=== PATIENT | male | born 1960 | race Caucasian/White ===

== ENCOUNTER → 2020-03-05 | Emergency (ER) | payer SELFPAY ==
[~2020-03-05] VITALS: Ht 188 cm; Wt 136.1 kg
[~2020-03-05] MED LIST: Ciprofloxacin Hydrochloride PO; DOC100C PO; HYDROcodone-ACET 10/325MG TAB PO ONE; HYDROcodone-ACET 5/325MG TAB PO ONE; RIVA10TA PO; SACC250C PO
[2020-03-05 03:11] LABS: Basophils # (auto) 0.1 10 ^3/uL (0-0.2); Basophils % (auto) 0.8 % (0.0-2.0); Eosinophils # (auto) 0.1 10 ^3/uL (0-0.8); Eosinophils % (auto) 1.9 % (0.0-7.0); Hemoglobin 15.3 g/dL (13.5-17.5); Lymphocytes # (auto) 1.4 10 ^3/uL (0.4-5.4); Lymphocytes % (auto) 21.5 % (10.0-50.0); Mean Corpuscular Hemoglobin 30.6 pg (28.0-32.0); Mean Corpuscular Hgb Conc. 35.5 g/dL (32.0-36.0); Monocytes # (auto) 0.6 10 ^3/uL (0-1.3); Monocytes % (auto) 9.3 % (0.0-12.0); Neutrophils # (auto) 4.5 10 ^3/uL (1.6-8.6); Neutrophils % (auto) 66.5 % (37.0-80.0); Nucleated Red Blood Cells % 0.2 %; Platelet Count (auto) 223 10^3/uL (140-450); Red Cell Distribution Width 13.5 % (11.8-14.3); White Blood Cell 6.7 10^3/uL (4.4-10.8)
[2020-03-05 04:00] LABS: Blood Alcohol < 3.0 mg/dL (0-5)
[2020-03-05 04:19] VITALS: BP 144/84
== END | disposition home or self-care (01) ==
LOC: EDUNIT# 03-04 23:55 → EDBD 00:10 → ER 00:15
DX: R07.89 Other chest pain (principal); Z79.899 Other long term (current) drug therapy; V49.9XXA Car occupant (driver) (passenger) injured in unspecified traffic accident, initial encounter; Y93.89 Activity, other specified; Y92.89 Other specified places as the place of occurrence of the external cause; Y99.8 Other external cause status
CPT/HCPCS: 36415; 70450; 71045; 72125; 73502; 80320; 83880; 84484; 85025

== ENCOUNTER 2020-12-07 10:20 | Emergency (ER) | payer OTHER ==
[~2020-12-07] VITALS: Ht 188 cm; Wt 136.1 kg
[~2020-12-07 10:20] MED LIST changes: -HYDROcodone-ACET 10/325MG TAB PO ONE; -HYDROcodone-ACET 5/325MG TAB PO ONE
[2020-12-07] MEDS ORDERED: SODIUM CHLORIDE 0.9% 1,000 ML IV ONE (11:30)
[2020-12-07] MEDS ORDERED: MORPHINE SULF INJ 2 MG/ML SYRINGE 1ML IV ONE ×2 (11:30→15:30)
[2020-12-07 12:49] LABS: Basophils # (auto) 0 10 ^3/uL (0-0.2); Basophils % (auto) 0.6 % (0.0-2.0); Eosinophils # (auto) 0.1 10 ^3/uL (0-0.8); Eosinophils % (auto) 1.6 % (0.0-7.0); Hematocrit 44.7 % (41.0-53.0); Hemoglobin 15.2 g/dL (13.5-17.5); Lymphocytes % (auto) 27.2 % (10.0-50.0); Mean Corpuscular Hemoglobin 29.4 pg (28.0-32.0); Mean Corpuscular Volume 86.5 fL (80.0-100.0); Monocytes # (auto) 0.6 10 ^3/uL (0-1.3); Monocytes % (auto) 7.6 % (0.0-12.0); Neutrophils # (auto) 4.6 10 ^3/uL (1.6-8.6); Nucleated Red Blood Cells % 0.1 %; Platelet Count (auto) 193 10^3/uL (140-450); Red Blood Cells 5.16 10^6/uL (4.5-5.90); Red Cell Distribution Width 13.2 % (11.8-14.3); White Blood Cell 7.3 10^3/uL (4.4-10.8)
[2020-12-07 13:08] LABS: Potassium 4.3 mmol/L (3.5-5.1)
[2020-12-07 13:10] LABS: INR 1.03 (0.9-1.15); Partial Thromboplastin Time 30.3 sec (23.0-31.2)
[2020-12-07 13:28] LABS: Albumin 4.4 g/dL (3.4-5.0); BUN/Creatinine Ratio 21.7; Bilirubin, Total 0.6 mg/dL (0.2-1.0); Calcium 9.1 mg/dL (8.5-10.1)
[2020-12-07 15:12] VITALS: BP 190/108
[2020-12-07] MEDS ORDERED: MORPHINE SULF INJ 2 MG/ML SYRINGE 1ML ONE (15:18)
== END 2020-12-07 15:29 | disposition designated cancer center or children's hospital (05) ==
LOC: ER 10:20
DX: S72.001A Fracture of unspecified part of neck of right femur, initial encounter for closed fracture (principal); I10 Essential (primary) hypertension; W22.8XXA Striking against or struck by other objects, initial encounter; Y93.89 Activity, other specified; Y92.89 Other specified places as the place of occurrence of the external cause; Y99.8 Other external cause status
CPT/HCPCS: 36415; 73502; 80053; 85025; 85610; 85730; 86850; 86900; 86901; 93005; 96361; 96374; 96376; 99285; J2270; J7030